=== PATIENT | male | born 1965 | race Caucasian/White ===

== ENCOUNTER 2018-10-16 06:07 | Emergency (ER) | payer OTHER ==
[~2018-10-16] VITALS: Ht 160 cm; Wt 75.0 kg
[~2018-10-16 06:07] MED LIST: AMIT25TA9 PO; BACL10TA PO; CYCL10TA7 PO; DIAZ5TAB PO; MELO15TA30 PO; ONDA4TAB8 PO; PROM25TA14 PO
[2018-10-16 06:10] VITALS: BP 135/98; PULSE 99; RESP 19; Ht 160 cm; Wt 75.0 kg
--- NOTE | 2018-10-16 06:40 | ERD ---
ER Documentation Chief Complaint Chief Complaint bib pd from halfway for clearing before booking due to headache HPI Translation services were utilized during this patient's encounter Language: Danish Source: In person 52-year-old male history of hyperlipidemia who presents to the emergency room in police custody for medical clearance. The patient states that he was perfectly fine until the fire truck showed up. When they flash the lights he states that he felt lightheaded, had a sound of air in his left ear and had a burning sensation to the his left lower extremity. The symptoms have improved. He denies any headache. No vision loss. No blurred vision. Patient denies any chest pain or shortness of breath fevers or chills, falls or injury or trauma. Patient denies any motor weakness. Patient is very limited and difficult historian despite the use of auto servicer. ROS All systems reviewed and are negative except as per history of present illness. Medications Home Meds Active Scripts Diazepam* (Valium*) 5 Mg Tablet, 5 MG PO Q8 for MUSCLE SPASMS, #10 TAB Prov:GERMAINE CARROLL DO 07/21/15 Ondansetron Hcl* (Zofran*) 4 Mg Tablet, 4 MG PO Q8H PRN for NAUSEA AND/OR VOMITING, #12 TAB Prov:GERMAINE CARROLL DO 07/21/15 Cyclobenzaprine Hcl* (Cyclobenzaprine Hcl*) 10 Mg Tablet, 10 MG PO TID, #15 TAB Prov:COLLEEN ASIF PA-C 06/06/15 Reported Medications Baclofen* (Baclofen*) 10 Mg Tablet, 10 MG PO TID, TAB 07/21/15 Promethazine Hcl* (Phenergan*) 25 Mg Tablet, 25 MG PO Q6H PRN for NAUSEA AND/OR VOMITING, TAB 07/21/15 Amitriptyline Hcl* (Amitriptyline Hcl*) 25 Mg Tablet, 25 MG PO QHS, #30 TAB 07/21/15 Meloxicam* (Mobic*) 15 Mg Tablet, 15 MG PO DAILY, #30 TAB 07/21/15 Allergies Allergies: Coded Allergies: No Known Allergy (Unverified , 06/06/15) PMhx/Soc History of Surgery: No Anesthesia Reaction: No Hx Neurological Disorder: No Hx Respiratory Disorders: No Hx Cardiac Disorders: No Hx Psychiatric Problems: No Hx Miscellaneous Medical Probl: No Hx Alcohol Use: No Hx Substance Use: No Hx Tobacco Use: No Smoking Status: Never smoker FmHx Family History: No diabetes Physical Exam Vitals Vital Signs Date Temp Pulse Resp B/P (MAP) Pulse Ox O2 O2 Flow FiO2 Time Delivery Rate 10/16/18 98.6 99 19 144/82 100 06:10 (102) 10/16/18 98.6 99 19 135/98 100 Room Air 06:10 (110) Physical Exam General: Well developed, well nourished, no acute distress Head: Normocephalic, atraumatic. Eyes: Pupils equally reactive, EOM intact ENT: Moist mucous membranes, bilateral tympanic membranes are nonbulging, clear without debris Neck: Supple, no lymphadenopathy Respiratory: Lungs clear bilaterally, no distress Cardiovascular: RRR, no murmurs, rubs, or gallops Abdominal: Soft, non-tender, non-distended, no peritoneal signs : Deferred MSK: No edema, no unilateral swelling, 5/5 strength Neurologic: Alert and oriented, moving all extremities, normal speech, no focal weakness, no cerebellar signs, steady gait Skin: No rash, no evidence of trauma Psych: Normal mood Procedures/MDM MEDICAL DECISION MAKING: The patient presents for evaluation of very nonspecific findings. The patient is a difficult historian however on thorough investigation his symptoms are n onspecific. He describes a sensation of air in his left ear. His ear exam is normal without tenderness or signs of infection or foreign body or perforation. Patient describes a burning to his left leg but he is a nonfocal exam is able to ambulate without bony abnormalities and a nonfocal neurologic exam. This all started when the patient was arrested, therefore I strongly suspect malingering in this patient. He exhibits no signs or symptoms concerning for emergent medical condition. His symptoms are not consistent with an acute stroke syndrome or intracranial process that would warrant laboratory testing or CT imaging of the head. Patient can be safely discharged into police custody with close primary care follow-up. CONSULTATION: None DISPOSITION PLAN: Into police custody The patient does not have an identifiable emergent medical condition that warrants inpatient hospitalization at this time. The patient is deemed safe for discharge with outpatient follow-up. We discussed follow up with the patient's primary care doctor within 24 to 48 hours as needed. We also discussed return to the emergency room for worsening symptoms or worsening condition. Outpatient referral: None required Discharge Medications: None required Departure Diagnosis: Primary Impression: Encounter for medical screening examination Condition: Good Patient Instructions: Medical Screening Exam, Nonurgent Referrals: [facility] Usted se villeda hecho un examen mdico de control que le indica que no est en melecio condicin que requiera tratamiento urgente en el Departamento de Emergencia. Un estudio ms profundo y el tratamiento de hermosillo condicin pueden esperar sin ningn riesgo hasta que usted sea atendida/o en el consultorio de hermosillo mdico o melecio clnica. Es responsabilidad suya arreglar melecio peter para el seguimiento del sarita. MANEJO DE CONDICIONES NO URGENTES EN EL FUTURO 1) Si usted tiene un mdico de atencin primaria: Usted debera llamar a hermosillo mdico de atencin primaria antes de venir al departamento de emergencia. Despus de las horas de consultorio, hermosillo doctor o hermosillo asociado/a est disponible por telfono. El mdico o enfermero de no en el servicio telefnico puede asesorarle por tarsha medio para atender el problema, o sarita contrario se puede programar melecio peter. 2) Si usted no tiene un mdico de atencin primaria: Llame al mdico o clnica de referencia que aparece abajo shoaib las horas de consultorio para hacer melecio peter para que le vean. CLINICAS: [facility] [phone] [facility] [phone] [facility] [phone] [facility] [place] [id number] [phone] [place] [phone] [facility] [phone] [place] [address]. [facility] () [place] se villeda hecho un examen mdico de control que le indica que no est en melecio condicin que requiera tratamiento urgente en el Departamento de Emergencia. Un estudio ms profundo y el tratamiento de hermosillo condicin pueden esperar sin ningn riesgo hasta que usted sea atendida/o en el consultorio de hermosillo mdico o melecio clnica. Es responsabilidad suya arreglar melecio peter para el seguimiento del sarita. MANEJO DE CONDICIONES NO URGENTES EN EL FUTURO 1) Si usted tiene un mdico de atencin primaria: Usted debera llamar a hermosillo mdico de atencin primaria antes de venir al departamento de emergencia. Despus de las horas de consultorio, hermosillo doctor o hermosillo asociado/a est disponible por telfono. El mdico o enfermero de no en el servicio telefnico puede asesorarle por tarsha medio para atender el problema, o sarita contrario se puede programar melecio peter. 2) Si usted no tiene un mdico de atencin primaria: Llame al mdico o condado institucions de referencia que aparece abajo shoaib las horas de consultorio para hacer melecio peter para que le vean. SI USTED NO PUEDE PAGAR PARA FERN UN MEDICO puede ir a: [facility] [id number] [place] [address] [facility] [address] [place] [address] [facility] [address] [place] [address] [facility] [address] [place] [address] Additional Instructions: OK TO BOOK Call your primary care doctor TOMORROW for an appointment during the next 1 WEEK.Tell the corporate legal secretary that you were referred from this facility.See the doctor sooner or return here if your condition worsens before your appointment time. JERMAIN BECERRA MD Oct 16, 2018 06:40
== END 2018-10-16 07:07 | disposition home or self-care (01) ==
LOC: E/R 06:07
DX: Z00.00 Encounter for general adult medical examination without abnormal findings (principal)
CPT/HCPCS: 99282